=== PATIENT | female | born 1970 | race Caucasian/White ===

== ENCOUNTER 2018-01-01 21:55 | Inpatient (IN) ==
--- NOTE | 2018-01-02 01:08 | ED ---
HPI General Chief complaint: Skin/Abscess/Foreign Body Stated complaint: rt leg pain Time Seen by Provider: 01/02/18 00:45 Source: patient Limitations: no limitations History of Present Illness HPI narrative: The patient is a 47 year old female who presents to the [facility] emergency department with a history of increasing pain to the right lower extremity. The patient reports that she has a chronic wound from being cut by a vine along the lateral aspect of the right leg. The patient reports that this has been managed by wound care in [place] up until a month ago when she moved to the area. She reports that she was last treated with antibiotic for this approximately a month ago. She reports that she is currently homeless. She reports that there has been a yellow drainage from the wound and the area of ulceration has increased in size recently. She reports having chills, however she is unsure whether she has had any fevers. She reports having nausea intermittently over the last 2 weeks. She reports having diarrhea since yesterday. She reports that she drinks a 12 pack of beer daily. On review of systems she denies having any worsening cough or congestion, neck pain, chest pain, shortness of breath, abdominal pain, urinary symptoms, or neurologic symptoms. Related Data Home Medications Medication Instructions Recorded Confirmed No Known Home Medications 01/02/18 01/02/18 Allergies Allergy/AdvReac Type Severity Reaction Status Date / Time aspirin Allergy Mild Rash Verified 01/01/18 22:28 nicotine Allergy Hives Verified 01/01/18 22:28 Review of Systems ROS: all other systems reviewed are negative [facility] Medical History Medical History COPD (chronic obstructive pulmonary disease) (Acute) Liver disease due to alcohol (Acute) Obesity (Acute) Social History Social History Substance History: Active Abuse Second Hand Smoke Exposure: Yes Smoking Status: Current every day smoker Tobacco Type: Cigarettes How Often Do You Have a Drink Containing Alcohol: 4 or more times a week Recent Travel in [facility] within the Last 8 Weeks: No Recent Out of Country Travel within the Last 8 Weeks: No Exam Const General: cooperative, no acute distress, well developed and disheveled Nutritional Appearance: well nourished Orientation: alert, awake and oriented x3 HENMT Head: normocephalic and atraumatic Nose: no nasal discharge and no epistaxis Mouth: moist mucous membranes Throat: posterior oropharynx normal and uvula midline Eyes Sclera: normal sclerae Pupils: PERRL Neck Neck: no meningeal signs, trachea midline and no JVD Resp Effort & Inspection: no use of accessory muscles Auscultation: clear to auscultation bilaterally Cardio Rate: regular rate Rhythm: regular rhythm Heart Sounds: no gallops, no murmurs and no rubs GI Inspection: non-distended Palpation: soft, no hepatosplenomegaly and nontender Auscultation: normal bowel sounds Back/Spine/Pelvis Back: no CVA tenderness Cervical Spine: No cervical spinal tenderness Thoracic/Lumbar Spine: No thoracic spinal tenderness and No lumbar spinal tenderness Skin General: dry skin (warm) Wounds: wounds noted (Right lower extremity lateral aspect, an area of ulceration with yellow drainage that is approximately 3 x 5 cm with an area of redness surrounding it and total that is approximately 6 x 7 cm.) Neuro General: alert, awake and oriented x3 Cranial Nerves: other (Grossly nonfocal.) Speech: speech normal Motor: no movement abnormalities noted Extrem General: normal to inspection, no clubbing, no cyanosis and edema (Trace to 1+ pitting edema bilateral lower extremities. No calf tenderness on palpation.) Laterality: bilaterally Psych Mood: congruent mood Affect: normal affect Judgment: fair Course Consultations Consultation #1: The patient's case including history, pertinent physical examination findings, and laboratory studies were discussed with Dr. Wilson. It was agreed that the patient would be admitted to the hospitalist service. Initial Documented Vital Signs Temperature 98 F 01/01/18 22:21 Pulse Rate 86 01/01/18 22:21 Respiratory Rate 16 01/01/18 22:21 Blood Pressure 126/74 01/01/18 22:21 Pulse Oximetry 96 01/01/18 22:21 Last Documented Vital Signs Temperature 98 F 01/01/18 22:21 Pulse Rate 88 01/02/18 02:29 Respiratory Rate 20 01/02/18 02:29 Blood Pressure 125/76 01/02/18 02:29 Pulse Oximetry 98 01/02/18 02:29 Medical Decision Making MDM Narrative Medical decision making narrative: During the course of the patient's emergency department visit, the patient's history, examination, and differential diagnosis were reviewed with the patient. The patient was placed on a alarm security or surveillance monitor with oximetry and frequent blood pressure monitoring. The patient had IV access obtained and blood work sent for analysis. Diagnostic evaluation was started regarding the patient's increased right leg pain with chronic wound that appears to be infected. The patient was initially provided him with saline IV fluids, Zosyn and vancomycin for broad-spectrum antibiotic coverage after wound culture and blood cultures were drawn. An x-ray of the right tib-fib was ordered. 100, diagnostic studies are remarkable for a white count of 3.9, hemoglobin 10.6 , platelets lymphocytes 44.6, monocytes 11, chemistry is remarkable for a chloride of 110, GFR 76, calcium 8.2, AST 82, alk phos 138, ALT within normal limits, lactic acid 0.8. Tib-fib x-ray reveals no acute abnormality, soft tissue ulceration remains present with subcu edema. Chest x-ray showed no acute abnormality. The patient's sedimentation rate is elevated at 62. The patient's CRP is less than 0.29. The patient's results were discussed with the patient, including the plan of care. I explained that further testing and/ or monitoring is indicated based on the patient's history, examination, and/ or laboratory findings. Therefore, I recommended admission for additional evaluation. The patient expressed understanding and was agreeable with this plan. The patient was admitted to the hospital in stable condition and sent to a bed under the care of the [facility] service. The patient's Medical Screen Exam Complete: Yes Emergency Medical Condition: Yes Differential Diagnosis Differential Diagnosis: Osteomyelitis, versus infected chronic wound, versus cellulitis, versus deep abscess, versus sepsis Medical Records Medical records reviewed: Yes I reviewed the patient's medical records. Lab Data Lab results reviewed: Yes I reviewed the patient's lab results. Result diagrams: 01/02/18 02:03 01/02/18 02:03 Lab Results 01/02/18 01/02/18 01/02/18 Range/Units 02:03 02:03 02:03 WBC 3.9 L (4.0-11.0) th/mm3 RBC 3.48 L (4.00-5.30) mil/mm3 Hgb 10.6 L (11.6-15.3) gm/dL Hct 33.1 L (35.0-46.0) % MCV 95.1 (80.0-100.0) fL MCH 30.4 (27.0-34.0) pg MCHC 31.9 L (32.0-36.0) % RDW 19.1 H (11.6-17.2) % Plt Count 100 L (150-450) th/mm3 MPV 8.3 (7.0-11.0) fL Neut % (Auto) 40.7 (16.0-70.0) % Lymph % (Auto) 44.6 H (9.0-44.0) % Terrell % (Auto) 11.0 H (0.0-8.0) % Eos % (Auto) 2.9 (0.0-4.0) % Baso % (Auto) 0.8 (0.0-2.0) % Neut # (Auto) 1.6 L (1.8-7.7) th/mm3 Lymph # (Auto) 1.8 (1.0-4.8) th/mm3 Terrell # (Auto) 0.4 (0.0-0.9) th/mm3 Eos # (Auto) 0.1 (0.0-0.4) th/mm3 Baso # (Auto) 0.0 (0.0-0.2) th/mm3 WBC Differential . Differential Comment Auto diff final ESR 62 H (0-20) mm/hr Sodium (136-145) meq/L Potassium (3.5-5.1) meq/L Chloride (98-107) meq/L Carbon Dioxide (21.0-32.0) meq/L Anion Gap (5-15) meq/L BUN (7-18) mg/dL Creatinine (0.50-1.00) mg/dL Estimated GFR (>89) mL/min Random Glucose (74-106) mg/dL Lactic Acid (0.4-2.0) mmol/L Calcium (8.5-10.1) mg/dL Total Bilirubin (0.2-1.0) mg/dL AST (15-37) U/L ALT (10-53) U/L Alkaline Phosphatase (45-117) U/L C-Reactive Protein Less than 0.29 (0.00-0.30) mg/dL Total Protein (6.4-8.2) g/dL Albumin (3.4-5.0) g/dL Lipase 929 H (73-393) U/L 01/02/18 01/02/18 Range/Units 02:03 02:03 WBC (4.0-11.0) th/mm3 RBC (4.00-5.30) mil/mm3 Hgb (11.6-15.3) gm/dL Hct (35.0-46.0) % MCV (80.0-100.0) fL MCH (27.0-34.0) pg MCHC (32.0-36.0) % RDW (11.6-17.2) % Plt Count (150-450) th/mm3 MPV (7.0-11.0) fL Neut % (Auto) (16.0-70.0) % Lymph % (Auto) (9.0-44.0) % Terrell % (Auto) (0.0-8.0) % Eos % (Auto) (0.0-4.0) % Baso % (Auto) (0.0-2.0) % Neut # (Auto) (1.8-7.7) th/mm3 Lymph # (Auto) (1.0-4.8) th/mm3 Terrell # (Auto) (0.0-0.9) th/mm3 Eos # (Auto) (0.0-0.4) th/mm3 Baso # (Auto) (0.0-0.2) th/mm3 WBC Differential Differential Comment ESR (0-20) mm/hr Sodium 144 (136-145) meq/L Potassium 4.0 (3.5-5.1) meq/L Chloride 110 H (98-107) meq/L Carbon Dioxide 29.0 (21.0-32.0) meq/L Anion Gap 5 (5-15) meq/L BUN 8 (7-18) mg/dL Creatinine 0.81 (0.50-1.00) mg/dL Estimated GFR 76 L (>89) mL/min Random Glucose 102 (74-106) mg/dL Lactic Acid 0.8 (0.4-2.0) mmol/L Calcium 8.2 L (8.5-10.1) mg/dL Total Bilirubin 0.5 (0.2-1.0) mg/dL AST 82 H (15-37) U/L ALT 26 (10-53) U/L Alkaline Phosphatase 138 H (45-117) U/L C-Reactive Protein (0.00-0.30) mg/dL Total Protein 8.5 H (6.4-8.2) g/dL Albumin 3.0 L (3.4-5.0) g/dL Lipase (73-393) U/L Imaging Data Radiologist's impression: Chest X-Ray 01/02/18 01:11 CONCLUSION: No acute findings. Tibia/Fibula X-Ray 01/02/18 01:11 CONCLUSION: No acute bony abnormality. Soft tissue ulceration remains present with subcutaneous edema. Discharge Plan Discharge Disposition Patient Disposition: 30 Still Patient Discharge Details Diagnosis: Infected open wound, Cellulitis Physicians Team ED Provider: Rajni Ochoa Rxs /Orders / Referrals /Forms Prescriptions: No Action No Known Home Medications RF: 0 Discharge Interventions Interventions: Vital Signs Last Done: 01/02/18 02:29 Status ED Status: With Doctor
[2018-01-02] MEDS ORDERED: Vancomycin Inj 1 GM/200 ML PIGGYBACK IV.SIG ONE ×2 (01:12→04:42)
[2018-01-02] MEDS ORDERED: Piperacil/Tazo 3.375 GM Premix 50 ML IV.SIG ONE ×2 (01:12→04:42)
[2018-01-02] MEDS ORDERED: Sod Chloride 0.9% Inj 1,000 ML IV.SIG ONE ×2 (01:12→04:42)
[2018-01-02 02:34] LABS: Baso % (Auto) 0.8 % (0.0-2.0); Eos # (Auto) 0.1 th/mm3 (0.0-0.4); Eos % (Auto) 2.9 % (0.0-4.0); Hematocrit 33.1 % (35.0-46.0); Hemoglobin 10.6 gm/dL (11.6-15.3); Lymph # (Auto) 1.8 th/mm3 (1.0-4.8); Lymph % (Auto) 44.6 % (9.0-44.0); Mean Corpuscular HGB Conc 31.9 % (32.0-36.0); Mean Corpuscular Hemoglobin 30.4 pg (27.0-34.0); Mean Corpuscular Volume 95.1 fL (80.0-100.0); Mean Platelet Volume 8.3 fL (7.0-11.0); Mono # (Auto) 0.4 th/mm3 (0.0-0.9); Neut # (Auto) 1.6 th/mm3 (1.8-7.7); Neut % (Auto) 40.7 % (16.0-70.0); Platelet Count 100 th/mm3 (150-450); Red Blood Count 3.48 mil/mm3 (4.00-5.30); Red Cell Distribution Width 19.1 % (11.6-17.2); White Blood Count 3.9 th/mm3 (4.0-11.0)
[2018-01-02 02:40] LABS: Alanine Aminotransferase 26 U/L (10-53); Anion Gap 5 meq/L (5-15); Aspartate Aminotransferase 82 U/L (15-37); Blood Urea Nitrogen 8 mg/dL (7-18); Calcium 8.2 mg/dL (8.5-10.1); Chloride 110 meq/L (98-107); Glomerular Filtration Rate 76 mL/min (>89); Glucose,Random 102 mg/dL (74-106); Lipase 929 U/L (73-393); Sodium 144 meq/L (136-145)
[2018-01-02 02:43] LABS: Alkaline Phosphatase 138 U/L (45-117); Total Protein 8.5 g/dL (6.4-8.2)
--- NOTE | 2018-01-02 02:57 | XR ---
EXAM DATE: 01/02/2018 2:54 AM EDT AGE/SEX: 47 years / Female INDICATIONS: Nonhealing ulcer on the distal lateral aspect of the right tibia. CLINICAL DATA: This is the patient's initial encounter. Patient reports that signs and symptoms have been present for 3 months and indicates a pain score of 10/10. MEDICAL/SURGICAL HISTORY: . Chronic obstructive pulmonary disease. . . Umbilical hernia repair . Cholecystectomy COMPARISON: [facility] [place], CHEST 1V SINGLE AP, 12/03/2017. . FINDINGS: A single AP view of the chest demonstrates the lungs to be symmetrically aerated without evidence of mass, infiltrate or effusion. The cardiomediastinal contours are unremarkable. Osseous structures a re intact. CONCLUSION: No acute findings. Electronically signed by: Ashkan Ty MD 01/02/2018 2:56 AM EDT
[2018-01-02] MEDS ORDERED: Vancomycin Inj 1,000 MG in Sodium Chlor 0.9% Inj 250 ML IV.SIG ONE ×6 (03:00→07:20)
--- NOTE | 2018-01-02 03:01 | XR ---
EXAM DATE: 01/02/2018 2:58 AM EDT AGE/SEX: 47 years / Female INDICATIONS: Nonhealing ulcer on the distal lateral aspect of the right tibia CLINICAL DATA: This is the patient's initial encounter. Patient reports that signs and symptoms have been present for 3 months and indicates a pain score of 10/10. MEDICAL/SURGICAL HISTORY: . Chronic obstructive pulmonary disease. . . Umbilical hernia repair . Cholecystectomy COMPARISON: [facility] [place], TIBIA FIBULA RIGHT 2V, 12/03/2017. . FINDINGS: Compare December 03. Again seen is an ulceration in the distal leg laterally. No acute underlying bony abnormality. Soft tissue edema present. CONCLUSION: No acute bony abnormality. Soft tissue ulceration remains present with subcutaneous edema. Electronically signed by: Ashkan Ty MD 01/02/2018 3:00 AM EDT
[2018-01-02] MEDS ORDERED: Vancomycin Consult Pharmacy OTHER PRN (04:42)
[2018-01-02] MEDS ORDERED: Acetaminophen 325 MG Tablet PO PRN (04:44)
[2018-01-02] MEDS ORDERED: Bisacodyl 10 MG Supp RECTAL PRN (04:44)
[2018-01-02] MEDS ORDERED: Ketorolac Inj 30 MG/ML (IVP) Vial IV.PUSH ONE (05:47)
[2018-01-02] MEDS: Sod Chloride 0.9% Inj 1,000 ML IV.CONT SCH ×4 (07:47→21:55)
--- NOTE | 2018-01-02 10:01 | P.HP ---
History of Present Illness Primary Care Physician: No Primary Care Physician History of Present Illness: 47-year-old white female being admitted for acutely infected wound and intractable right leg pain. Patient was in her usual state of health until about 1 week ago when the chronic intermittent pain in her right foot and wound began to worsen and became unbearable over the week. Hurt more to bear weight on it, only thing she has tried to do to take away the pain is drink alcohol which she drinks daily anyway.. Patient says she is noticed no significant change in the chronic drainage of the wound which would either drain blood or yellowish fluid. Says it has had followed her for a couple of weeks now. Patient says that most recently she has just been applying gauze to cover it but had been applying med-a-honey up until a few weeks ago. Says she saw a dedicated wound care practice in [place] right across from [facility]. Patient denies having any surgery on this wound. Says this wound has been there for 4 months, first occurred when she had cut herself with some thorny lima in the ol[place]. Patient says she has been home for 4 years. Patient reports having some nausea but no fevers or chills. Patient says that she does have increased lower extremity edema, on exam the right is worse than the left. In the emergency department her blood work is unremarkable. Review of Systems All other systems reviewed negative except as stated in HPI PMFSH - History History Provided By: Patient - Medical History Medical History: Medical History (Last Reviewed 01/02/18 @ 10:02 by Francisco Roberts MD) COPD (chronic obstructive pulmonary disease) Liver disease due to alcohol Obesity - Surgical History Surgical History: Surgical History (Last Updated 01/02/18 @ 10:02 by Francisco Roberts MD) H/O hernia repair - Social History I have reviewed the patient's Social History: Yes - Tobacco History Second Hand Smoke Exposure: Yes Tobacco Use In Past 30 Days: Yes Smoking Status: Current every day smoker Tobacco Type: Cigarettes - Alcohol History How Often Do You Have a Drink Containing Alcohol: 4 or more times a week - Substance Use History Substance History: Active Abuse - Travel History Recent Travel in the [place] Within the Last 8 Weeks: No Recent Travel Out of the Country Within the Last 8 Weeks: No - Immunization History Tetanus Immunization: <5 Years Hx Influenza Vaccine This Season: Yes Medications and Allergies Active Medications: Active Medications Acetaminophen (Tylenol) 650 mg PO Q4H PRN PRN Reason: Temp > 100.4 Al Hydroxide/Mg Hydroxide (Milk Of Magnesia Liq) 30 ml PO Q12H PRN PRN Reason: Mild Constipation Bisacodyl (Dulcolax Supp) 10 mg RECTAL DAILY PRN PRN Reason: SEVERE CONSITIPATION Chlordiazepoxide (Librium) 10 mg PO Q8H [facility] Sodium Chloride (Ns Inj) 1,000 mls @ 125 mls/hr IV.CONT .Q8H [facility] Last Admin: 01/02/18 07:47 Dose: 125 mls/hr Piperacillin/Tazobactam/Dextrose (Zosyn 3.375 Gm Premix) 50 mls @ 100 mls/hr IV.SIG Q6H [facility] Lactulose (Lactulose Liq) 30 ml PO DAILY PRN PRN Reason: SEVERE CONSITIPATION Ondansetron HCl (Zofran Inj) 4 mg IV.PUSH Q6H PRN PRN Reason: NAUSEA OR VOMITING Pharmacy Profile Note (Vancomycin Consult Pharmacy) 1 each OTHER UNSCH PRN PRN Reason: Pharmacy to dose Senna/Docusate Sodium (Heike-Colace) 1 tab PO BID [facility] Sennosides (Senokot) 17.2 mg PO Q12H PRN PRN Reason: Moderate Constipation Allergies Allergy/AdvReac Type Severity Reaction Status Date / Time aspirin Allergy Mild Rash Verified 01/01/18 22:28 nicotine Allergy Hives Verified 01/01/18 22:28 Home Medications Medication Instructions Recorded Confirmed Type No Known Home Medications 01/02/18 01/02/18 History Exam Vital signs: Vital Signs 01/01/18 22:21 01/01/18 22:29 01/02/18 02:29 Temperature 98 F Pulse Rate 86 72 88 Respiratory Rate 16 20 20 Blood Pressure 126/74 116/68 125/76 Pulse Oximetry 96 98 98 01/02/18 09:00 Temperature Pulse Rate 66 Respiratory Rate 16 Blood Pressure 144/75 H Pulse Oximetry 98 Intake & Output 01/01/18 01/02/18 01/02/18 18:59 06:59 18:59 Intake Total 1050 / 1050 1300 / 1300 Balance 1050 / 1050 1300 / 1300 Weight 122.47 kg Intake: IV 1050 / 1050 1300 / 1300 Zosyn 3.375 GM Premix 50 ML @ 50 / 50 100 mls/hr IV.SIG ONCE ONE Rx#: [id number] NS Inj 1,000 ML @ Wide Open IV. 1000 / 1000 SIG BOLUS ONE Rx#:[id number] Narrative: VS: afebrile GENERAL: Obese female, disheveled appearing, no acute distress SKIN: Has a gaping wound that is at least golf ball size in diameter with purulent drainage that has a foul odor and appears to penetrate subcu fat EYES: No scleral icterus. No injection or drainage. ENT: No nasal bleeding or discharge. CARDIOVASCULAR: Regular rate and rhythm. no murmurs RESPIRATORY: No accessory muscle use. Clear to auscultation. Breath sounds equal bilaterally. GASTROINTESTINAL: Abdomen soft, non-tender, nondistended. Extremities: No clubbing, cyanosis. Has bilateral lower extremity edema, right is worse than the left. MUSCULOSKELETAL: adequate muscle bulk and tone for age and habitus NEUROLOGICAL: Awake and alert. No obvious cranial nerve deficits. No facial droop nor slurred speech noted. PSYCHIATRIC: Appropriate mood and affect; insight and judgment normal. Results - Labs CBC & Chem 7: 01/03/18 05:20 01/03/18 05:20 Labs: Laboratory Results - last 24 hr 01/02/18 01/02/18 01/02/18 02:03 02:03 02:03 WBC 3.9 L RBC 3.48 L Hgb 10.6 L Hct 33.1 L MCV 95.1 MCH 30.4 MCHC 31.9 L RDW 19.1 H Plt Count 100 L MPV 8.3 Neut % (Auto) 40.7 Lymph % (Auto) 44.6 H Pettis % (Auto) 11.0 H Eos % (Auto) 2.9 Baso % (Auto) 0.8 Neut # (Auto) 1.6 L Lymph # (Auto) 1.8 Pettis # (Auto) 0.4 Eos # (Auto) 0.1 Baso # (Auto) 0.0 WBC Differential . Differential Comment Auto diff final ESR 62 H Sodium Potassium Chloride Carbon Dioxide Anion Gap BUN Creatinine Estimated GFR Random Glucose Lactic Acid Calcium Total Bilirubin AST ALT Alkaline Phosphatase C-Reactive Protein Less than 0.29 Total Protein Albumin Lipase 929 H 01/02/18 01/02/18 02:03 02:03 WBC RBC Hgb Hct MCV MCH MCHC RDW Plt Count MPV Neut % (Auto) Lymph % (Auto) Pettis % (Auto) Eos % (Auto) Baso % (Auto) Neut # (Auto) Lymph # (Auto) Pettis # (Auto) Eos # (Auto) Baso # (Auto) WBC Differential Differential Comment ESR Sodium 144 Potassium 4.0 Chloride 110 H Carbon Dioxide 29.0 Anion Gap 5 BUN 8 Creatinine 0.81 Estimated GFR 76 L Random Glucose 102 Lactic Acid 0.8 Calcium 8.2 L Total Bilirubin 0.5 AST 82 H ALT 26 Alkaline Phosphatase 138 H C-Reactive Protein Total Protein 8.5 H Albumin 3.0 L Lipase - Imaging Impressions Chest X-Ray 01/02/18 01:11 CONCLUSION: No acute findings. Tibia/Fibula X-Ray 01/02/18 01:11 CONCLUSION: No acute bony abnormality. Soft tissue ulceration remains present with subcutaneous edema. Caprini VTE Risk Assessment Caprini VTE Risk Assessment: Moderate/High Risk (score >= 2) VTE Mechanical Exception: LE injury/wound Caprini Risk Assessment Model: Point Value = 1 Point Value = 2 Point Value = 3 Point Value = 5 Age 41-60 Minor surgery BMI > 25 kg/m2 Swollen legs Varicose veins or History of unexplained or recurrent spontaneous Oral contraceptives or hormone replacement Sepsis (< 1 month) Serious lung disease, including pneumonia (< 1 month) Abnormal pulmonary function Acute myocardial infarction Congestive heart failure (< 1 month) History of inflammatory bowel disease Medical patient at bed rest Age 61-74 Arthroscopic surgery Major open surgery (> 45 min) Laparoscopic surgery (> 45 min) Malignancy Confined to bed (> 72 hours) Immobilizing plaster cast Central venous access Age >= 75 History of VTE Family history of VTE Factor V Leiden Prothrombin [id number] Lupus anticoagulant Anticardiolipin antibodies Elevated serum homocysteine Heparin-induced thrombocytopenia Other congenital or acquired thrombophilia Stroke (< 1 month) Elective arthroplasty Hip, pelvis, or leg fracture Acute spinal cord injury (< 1 month) Prophylaxis Regimen: Total Risk Factor Score Risk Level Prophylaxis Regimen 0-1 Low Early ambulation 2 Moderate Order ONE of the following: *Sequential Compression Device (SCD) *Heparin 5000 units SQ BID 3-4 Higher Order ONE of the following medications: *Heparin 5000 units SQ TID *Enoxaparin/Lovenox 40 mg SQ daily (WT < 150 kg, CrCl > 30 mL/min) *Enoxaparin/Lovenox 30 mg SQ daily (WT < 150 kg, CrCl > 10-29 mL/min) *Enoxaparin/Lovenox 30 mg SQ BID (WT < 150 kg, CrCl > 30 mL/min) AND/OR *Sequential Compression Device (SCD) 5 or more Highest Order ONE of the following medications: *Heparin 5000 units SQ TID (Preferred with Epidurals) *Enoxaparin/Lovenox 40 mg SQ daily (WT < 150 kg, CrCl > 30 mL/min) *Enoxaparin/Lovenox 30 mg SQ daily (WT < 150 kg, CrCl > 10-29 mL/min) *Enoxaparin/Lovenox 30 mg SQ BID (WT < 150 kg, CrCl > 30 mL/min) AND *Sequential Compression Device (SCD) Assessment and Plan - Plan 47-year-old white female admitted for acutely infected chronic wound with intractable leg pain Intractable leg pain Suspect acutely infected chronic wound also need to rule out DVT with ultrasound venous Doppler -consulting wound care physician, wound care nurse, and general surgeon. With the obvious missing skin I would imagine this patient's wound will need specialist intervention - f/u wound culture and G stain, continue vanc and zosyn Lower extremity edema Most likely from dependent positions, will obtain echo to rule out heart failure as well as doppler on right leg to r/o DVT, hold off on lasix, keep elevated Alcohol abuse -We will schedule Librium every 8 hours, wean over time COPD Monitor respiratory status, stable at this time We will consider chemical DVT prophylaxis once patient is surgically clear to do so, avoid SCDs given lower extremity conditions
--- NOTE | 2018-01-02 10:35 | US ---
EXAM DATE: 01/02/2018 10:30 AM EDT AGE/SEX: 47 years / Female INDICATIONS: Right leg pain and swelling. Open wound right lower lateral leg. CLINICAL DATA: This is the patient's initial encounter. Patient reports that signs and symptoms have been present for 4 - 6 months and indicates a pain score of 8/10. MEDICAL/SURGICAL HISTORY: . COPD. Liver disease. Obesity. None. COMPARISON: [facility] [place], [place] LEG SOFT TISSUE RIGHT, 01/02/2018. . TECHNIQUE: Venous ultrasound of both lower extremities was performed from the inguinal ligament to t he proximal calf. Real-time, color Doppler and spectral tracing, compression and augmentation techni ques were used. FINDINGS: Normal compression of the deep venous system from the inguinal region to the proximal calf . No echogenic clot is seen. Normal response of the venous system to augmentation and respiration. 3 cm right inguinal lymph node 5.6 cm popliteal cyst. CONCLUSION: 1. Negative for deep venous thrombosis 2. 5.6 cm popliteal cyst Electronically signed by: Wyatt Castañeda MD 01/02/2018 10:33 AM EDT
[2018-01-02] MEDS: Senna/Docusate Sodium 8.6/50 MG Tablet PO SCH ×2 (10:43→21:54)
[2018-01-02] MEDS ORDERED: Piperacil/Tazo 3.375 GM Premix 50 ML IV.SIG SCH (11:00)
[2018-01-02] MEDS ORDERED: Naloxone Inj 0.4 MG/ML Vial IV.PUSH PRN (12:46)
[2018-01-02] MEDS ORDERED: Vancomycin Inj 1,750 MG in Sodium Chlor 0.9% Inj 500 ML IV.SIG SCH (14:00)
[2018-01-02] MEDS: Piperacil/Tazo 3.375 GM Premix 50 ML IV.SIG SCH ×2 (15:49→21:54)
--- NOTE | 2018-01-02 16:01 | US ---
EXAM DATE: 01/02/2018 10:24 AM EDT AGE/SEX: 47 years / Female INDICATIONS: Wound lateral right lower leg with yellow drainage. CLINICAL DATA: This is the patient's initial encounter. Patient reports that signs and symptoms have been present for 4 - 6 months and indicates a pain score of 8/10. MEDICAL/SURGICAL HISTORY: . COPD. Liver disease. Obesity. None. COMPARISON: No prior exams available for comparison. FINDINGS: There is a large open wound present. There is a very small amount of fluid layering along the fascia and subcutaneous tissues without defined abscess. CONCLUSION: 1. Fluid as above. Electronically signed by: Wyatt Castañeda MD 01/02/2018 3:59 PM EDT
[2018-01-02] MEDS ORDERED: Lidocaine PF 1% Inj 5 ML Syringe INFILTRATN ONE (17:15)
[2018-01-02] MEDS ORDERED: Succinylcholine Inj 100 MG/5 ML Syringe IV.PUSH ONE (17:15)
[2018-01-02] MEDS ORDERED: fentaNYL Citrate Inj 250 MCG/5 ML Ampul ONE (18:39)
[2018-01-02] MEDS ORDERED: Neomycin/Polymyxin G.U. Irrigant 1 ML Ampul ONE ×2 (19:02→19:18)
--- NOTE | 2018-01-02 19:13 | P.OP ---
- Preoperative Diagnosis (1) Infected open wound - Postoperative Diagnosis (1) Infected open wound Date of procedure: 01/02/18 Procedure: I and D of RLE abscess with vac Anesthesia: GETA Surgeon: Wilfrido Miller MD Estimated blood loss (mL): 5 Pathology: other (purulent material sent for cx) Operation and Findings: abscess
[2018-01-02] MEDS ORDERED: MethylPREDNISolone Sod Succinate Inj 125 MG/2 ML Vial ONE (19:37)
[2018-01-02] MEDS ORDERED: *Meperidine Inj 25 MG/ML Vial PERIprocedural Use ONLY ONE (20:05)
--- NOTE | 2018-01-02 21:28 | MB ---
cc: Wilfrido Miller MD,Rajni Hawk MD DATE: 01/02/2018 CHIEF COMPLAINT: Right lower extremity abscess infection, chronic nonhealing wound. STRATEGIC PLANNING MANAGER: Rajni Ochoa MD HISTORY OF PRESENT ILLNESS: The patient is a 47-year-old female who presents with an acute onset of right lower extremity pain. The patient states that approximately 1 week ago, her foot began to swell significantly and her pain became unbearable. She tried to walk on it, but had difficulty. She has no fevers or chills. She states the pain is a 10/10 with some improvement with IV morphine to 9/10. She states chronic nonhealing wound drainage. She states that this has been going on for 4 months. It originally started after being cut in the oliva by a thorny vine and has progressively gotten worse and has not healed. She has undergone several attempts of wound care without success. The patient is noted to be homeless and does drink a 12-pack per day. She denies any shortness of breath, diarrhea or constipation. PAST MEDICAL HISTORY: COPD, liver disease, obesity, chronic right lower extremity wound. PAST SURGICAL HISTORY: History of hernia repair. SOCIAL HISTORY: Positive smoking, positive ETOH. Denies IVDA. ALLERGIES: ASPIRIN, CODEINE. MEDICATIONS: See EMR. FAMILY HISTORY: Denies diabetes or hypertension. REVIEW OF SYSTEMS: GENERAL: Denies eye pain or ear pain. NECK: Denies swelling or pain. LUNGS: Denies cough or wheeze. HEART: Denies palpitations or chest pain. ABDOMEN: Denies nausea or vomiting. GENITOURINARY: Denies dysuria or hematuria. ENDOCRINE: Denies polyuria or polydipsia. INTEGUMENT: Denies any masses. Complains of lesion on right lower extremity. EXTREMITIES: Complains of swelling and edema. NEUROLOGIC: Denies any numbness or tingling. PHYSICAL EXAMINATION: GENERAL: The patient in no acute distress. VITAL SIGNS: Temperature 98, pulse 86, respirations 16, blood pressure 126/74, saturation 96%. HEENT: Pupils equal, round and reactive. NECK: Supple. Trachea midline. LUNGS: Clear to auscultation with bilateral expansion. HEART: S1, S2. Regular. ABDOMEN: Soft, nontender. Well-healed surgical scars. EXTREMITIES: Warm and well perfused, 2+ pulses in all extremities. Right lower extremity lateral aspect, a 4 x 4 cm necrotic area with ulceration and purulent drainage. Extremely tender to palpation. Cellulitic areas as well. NEUROLOGIC: GCS 15, 5/5 motor in all extremities. PSYCHIATRIC: Appropriate mood, appropriate insight. LABORATORY AND DIAGNOSTIC DATA: WBC 3.9, hemoglobin 10.6, hematocrit 33.1, platelets 100. Sodium 144, potassium 4, chloride 110, BUN 8, creatinine 0.8, calcium 8.2, AST 82, ALT 26, alkaline phosphatase 138, lipase 929, albumin 3. An ultrasound reviewed by myself is showing a large open wound present with a small amount of fluid in the underlying fascia and subcutaneous tissue. ASSESSMENT: The patient is a 47-year-old female who presents with acute onset right lower extremity wound, acute on chronic exacerbation. PLAN: After a full clinical, radiologic and laboratory workup, the patient with the above-noted issues. The patient was noted to have edema with cellulitis and purulent drainage from a chronically nonhealing wound. At this point, we will take the patient to the OR for operative intervention including incision and debridement and drainage with VAC placement. Discussed with the patient in detail. She states understanding and agrees. The patient needs IV antibiotics, n.p.o., pain control, IV fluids. Thank you for the consultation. MD ED Zapien/rabia , 08:21 PM , 08:32 PM
--- NOTE | 2018-01-02 22:13 | MP ---
cc: Wilfrido Miller MD DATE OF OPERATION: 01/02/2018 PREOPERATIVE DIAGNOSIS: Right lower extremity abscess, chronic nonhealing wound. POSTOPERATIVE DIAGNOSIS: Right lower extremity abscess, chronic nonhealing wound. PROCEDURE PERFORMED: Incision and drainage with excisional debridement of skin and soft tissue of abscess and chronic leg ulceration with VAC placement 4 x 4 x 0.5 cm deep. SURGEON: Wilfrido Miller MD TECHNICAL PROJECT LEAD: See OR sheet. ANESTHESIA: GETA. IV FLUIDS: See sheet. ESTIMATED BLOOD LOSS: 5 mL. DRAINS: Hemovac placement. COMPLICATIONS: None. WOUND CLASSIFICATION: Dirty, contaminated. SPECIMENS: Cultures of the wound bed, taken for culture. Biopsy of skin sidewall was sent for pathology. INDICATION: The patient presented with acute onset of right lower extremity pain. The patient was noted to have been cut by a vine several months ago and developed pain with this. She developed a chronic wound as a result cut from branch and intensified, so decision was made for evaluation and debridement. PROCEDURE: The patient was taken to the operating suite and placed in the supine position. She was prepped and draped in usual sterile fashion after endotracheal anesthesia. A timeout was done. Attention was directed to the right lower extremity where the ulceration bed was noted. There was purulent drainage coming from the wound bed. Swab cultures were taken of this purulence and sent for culture specimen and Gram stain. Further debridement was done of the necrotic tissue in order to get to clean, healthy tissue. An aspiration 20-gauge needle was used in order to see if there is any deep seated abscess. There did not appear to be any purulent infected fluid, just serous edematous fluid. This was also sent for cultures to verify. Once adequate hemostasis was obtained, the wound bed again noted to be 4 cm x 4 cm x 0.5 cm deep. A VAC sponge was cut to size and placed in the wound bed. After irrigation multiple aliquots of normal saline. The plastic drape was placed. The retractor was placed to suction without evidence of leaking. The patient tolerated the procedure well. There were no intraoperative complications. All lap and instrument counts were correct at the end of the procedure. The patient was extubated and taken to the PACU. MD ED Zapien/dinah/ , 07:52 PM , 08:03 PM MTDKenn
[2018-01-03] MEDS: Piperacil/Tazo 3.375 GM Premix 50 ML IV.SIG SCH ×4 (02:50→20:21)
[2018-01-03] MEDS: Vancomycin Inj 1,750 MG in Sodium Chlor 0.9% Inj 500 ML IV.SIG SCH ×2 (04:31→15:22)
[2018-01-03 06:18] LABS: Baso % (Auto) 0.2 % (0.0-2.0); Eos % (Auto) 0.1 % (0.0-4.0); Hematocrit 30.3 % (35.0-46.0); Hemoglobin 9.5 gm/dL (11.6-15.3); Lymph # (Auto) 0.2 th/mm3 (1.0-4.8); Lymph % (Auto) 10.3 % (9.0-44.0); Mean Corpuscular HGB Conc 31.4 % (32.0-36.0); Mean Corpuscular Hemoglobin 30.2 pg (27.0-34.0); Mean Corpuscular Volume 96.3 fL (80.0-100.0); Mean Platelet Volume 8.8 fL (7.0-11.0); Mono % (Auto) 1.6 % (0.0-8.0); Neut % (Auto) 87.8 % (16.0-70.0); Platelet Count 66 th/mm3 (150-450); Red Blood Count 3.15 mil/mm3 (4.00-5.30); Red Cell Distribution Width 18.4 % (11.6-17.2); White Blood Count 2.3 th/mm3 (4.0-11.0)
[2018-01-03] MEDS: Sod Chloride 0.9% Inj 1,000 ML IV.CONT SCH ×3 (06:28→22:45)
[2018-01-03 06:51] LABS: Calcium 7.8 mg/dL (8.5-10.1); Carbon Dioxide 24.1 meq/L (21.0-32.0); Potassium 4.4 meq/L (3.5-5.1)
[2018-01-03 07:02] LABS: Platelet Morphology Normal (Normal)
[2018-01-03] MEDS: Senna/Docusate Sodium 8.6/50 MG Tablet PO SCH ×2 (08:42→20:22)
--- NOTE | 2018-01-03 09:56 | P.PN ---
Subjective Interval history: Follow-up right lower extremity abscess status post I&D. Patient has no new complaints. Tolerating wound VAC. Discussed with neurosurgery follow-up and biopsy Physical Exam Vital signs: Vital Signs 01/02/18 12:52 01/02/18 14:45 01/02/18 18:40 Temperature 98.0 F Pulse Rate 60 60 65 Respiratory Rate 18 16 14 Blood Pressure 144/82 H 158/80 H 177/73 H Pulse Oximetry 96 99 98 01/02/18 20:00 01/02/18 20:15 01/02/18 20:40 Temperature 98.0 F 98 F 98.0 F Pulse Rate 91 H 76 66 Respiratory Rate 14 14 14 Blood Pressure 139/63 151/68 H 153/69 H Pulse Oximetry 98 97 100 01/02/18 21:00 01/03/18 00:00 01/03/18 04:00 Temperature 97.6 F 97.4 F L 98.1 F Pulse Rate 73 72 63 Respiratory Rate 20 20 20 Blood Pressure 181/73 H 168/76 H 142/69 H Pulse Oximetry 93 L 94 L 94 L 01/03/18 08:04 Temperature 97.8 F Pulse Rate 59 L Respiratory Rate 16 Blood Pressure 128/60 Pulse Oximetry 96 Intake & Output 01/02/18 01/03/18 01/03/18 18:59 06:59 18:59 Intake Total 3350 / 3350 2597.5 / 2597.5 Output Total 25 / 25 Balance 3350 / 3350 2572.5 / 2572.5 Weight 132.3 kg 136.8 kg Intake: IV 3350 / 3350 1617.5 / 1617.5 NS Inj 1,000 ML @ 125 mls/hr IV 1999 / 2000 1000 / 1000 .CONT .Q8H CHARLIE Rx#:[id number] Zosyn 3.375 GM Premix 50 ML @ 50 / 50 100 / 100 100 mls/hr IV.SIG Q6H [facility]LIE Rx#: [id number] Vancomycin Inj 1,750 MG In NS 517.5 / 517.5 Inj 500 ML @ 250 mls/hr IV.SIG Q12H [facility]LIE Rx#:[id number] Oral 480 / 480 Anesthesia Amount 500 / 500 Output: Wound Vac Amount 25 / 25 Right Lower Calf 25 / 25 Other: Mode Setting Left Lower Calf Continuous Right Lower Calf Continuous # Voids 3 Weight On Admission 132.3 kg Narrative: GENERAL: Obese female, disheveled appearing, no acute distress SKIN: Sunburn. Wd vac right leg CARDIOVASCULAR: Regular rhythm. Bradycardia no murmurs RESPIRATORY: No accessory muscle use. Clear to auscultation. Breath sounds equal bilaterally. GASTROINTESTINAL: Abdomen soft, non-tender, nondistended. Extremities: No clubbing, cyanosis. Has bilateral lower extremity edema, right is worse than the left. MUSCULOSKELETAL: adequate muscle bulk and tone for age and habitus NEUROLOGICAL: Awake and alert. No obvious cranial nerve deficits. No facial droop nor slurred speech noted. PSYCHIATRIC: Appropriate mood and affect; insight and judgment normal. Results - Labs CBC & Chem 7: 01/03/18 05:20 01/03/18 05:20 Laboratory Results - last 24 hr 01/03/18 01/03/18 05:20 05:20 WBC 2.3 L RBC 3.15 L Hgb 9.5 L Hct 30.3 L MCV 96.3 MCH 30.2 MCHC 31.4 L RDW 18.4 H Plt Count 66 L D MPV 8.8 Prelim Diff (Auto) Slide review pending Neut % (Auto) 87.8 H Lymph % (Auto) 10.3 [place] % (Auto) 1.6 Eos % (Auto) 0.1 Baso % (Auto) 0.2 Neut # (Auto) 2.0 Lymph # (Auto) 0.2 L [place] # (Auto) 0.0 Eos # (Auto) 0.0 Baso # (Auto) 0.0 WBC Differential . Diff Scan Auto diff confirmed Differential Comment . Platelet Estimate Low L Platelet Morphology Normal Sodium 138 Potassium 4.4 Chloride 106 Carbon Dioxide 24.1 Anion Gap 8 BUN 10 Creatinine 0.96 Estimated GFR 63 L Random Glucose 278 H D Calcium 7.8 L Microbiology 01/02/18 22:00 Abscess - Leg Fungal Smear - Final No fungal elements seen 01/02/18 01:45 Wound - Leg Gram Stain - Final - Imaging Impressions ITS Impressions Lower Extremity Ultrasound 01/02/18 00:00 CONCLUSION: 1. Fluid as above. Venous Doppler Study 01/02/18 00:00 CONCLUSION: 1. Negative for deep venous thrombosis 2. 5.6 cm popliteal cyst Chest X-Ray 01/02/18 01:11 CONCLUSION: No acute findings. Tibia/Fibula X-Ray 01/02/18 01:11 CONCLUSION: No acute bony abnormality. Soft tissue ulceration remains present with subcutaneous edema. - Procedures Status post I&D of right lower extremity abscess Assessment and Plan - Plan 47-year-old white female admitted for acutely infected chronic wound with intractable leg pain Right lower extremity abscess with leg pain status post I&D with wound VAC. Wound care, pain management with Lortab and antibiotics with vancomycin and Zosyn follow-up cultures with gram-negative lizzie. Follow-up biopsy -Surgery to consider discontinuation of wound VAC in 1-2 days transition to wet- to-dry Lower extremity edema. Negative for DVT on Doppler. Echocardiogram unremarkable Most likely from dependent positions, keep elevated Alcohol abuse -We will schedule Librium every 8 hours, wean over time. [place] protocol COPD Monitor respiratory status, stable at this time Pancytopenia likely related to alcohol. Monitor Elevated lipase. Denies abdominal pain. Monitor we will consider chemical DVT prophylaxis once patient is surgically clear to do so and when thrombocytopenia improves, avoid SCDs given lower extremity conditions
[2018-01-03] MEDS ORDERED: Haloperidol Inj 5 MG/ML Ampul IV.PUSH PRN (10:00)
[2018-01-03] MEDS ORDERED: LORazepam 1 MG Tablet PO PRN (10:00)
--- NOTE | 2018-01-03 10:55 | P.PNGS ---
Subjective Patient reports: feels better (still with RLE pain, stable, no fevers ) Physical Exam Vital signs: Vital Signs 01/02/18 12:52 01/02/18 14:45 01/02/18 18:40 Temperature 98.0 F Pulse Rate 60 60 65 Respiratory Rate 18 16 14 Blood Pressure 144/82 H 158/80 H 177/73 H Pulse Oximetry 96 99 98 01/02/18 20:00 01/02/18 20:15 01/02/18 20:40 Temperature 98.0 F 98 F 98.0 F Pulse Rate 91 H 76 66 Respiratory Rate 14 14 14 Blood Pressure 139/63 151/68 H 153/69 H Pulse Oximetry 98 97 100 01/02/18 21:00 01/03/18 00:00 01/03/18 04:00 Temperature 97.6 F 97.4 F L 98.1 F Pulse Rate 73 72 63 Respiratory Rate 20 20 20 Blood Pressure 181/73 H 168/76 H 142/69 H Pulse Oximetry 93 L 94 L 94 L 01/03/18 08:04 Temperature 97.8 F Pulse Rate 59 L Respiratory Rate 16 Blood Pressure 128/60 Pulse Oximetry 96 Intake & Output 01/02/18 01/03/18 01/03/18 18:59 06:59 18:59 Intake Total 3350 / 3350 2597.5 / 2597.5 Output Total Balance 3350 / 3350 2572.5 / 2572.5 Weight 132.3 kg 136.8 kg Intake: IV 3350 / 3350 1617.5 / 1617.5 NS Inj 1,000 ML @ 125 mls/hr IV 1999 / 1999 1000 / 1000 .CONT .Q8H [facility] Rx#:[id number] Zosyn 3.375 GM Premix 50 ML @ 50 / 50 100 / 100 100 mls/hr IV.SIG Q6H [facility]LIE Rx#: [id number] Vancomycin Inj 1,750 MG In NS 517.5 / 517.5 Inj 500 ML @ 250 mls/hr IV.SIG Q12H [facility] Rx#:[id number] Oral 480 / 480 Anesthesia Amount 500 / 500 Output: Wound Vac Amount 25 / 25 Right Lower Calf 25 / 25 Other: Mode Setting Left Lower Calf Continuous Right Lower Calf Continuous # Voids 3 Weight On Admission 132.3 kg - Routine Extremities Exam Present: edema (vac in place RLE, good sxn, no leak) Assessment and Plan - Plan POD 1 I and d with vac plan reg diet elevation of leg while in bed, ambulate ok for dvt ppx pain control await bx result will remove vac 24-48 hours and transition to wet to dry
--- NOTE | 2018-01-03 12:37 | ECHRPT ---
Indication: heart failure CONCLUSIONS Normal left ventricular size. Wall thickness is normal. The left ventricular systolic function is normal with an estimated ejection fraction of 55%. No defi nite regional wall motion abnormalities are present. No valvular abnormalities. BP: / HR: Rhythm: Technical Quality: FINDINGS LEFT VENTRICLE Normal left ventricular size. Wall thickness is normal. The left ventricular systolic function is normal with an estimated ejection fraction of 55%. No defi nite regional wall motion abnormalities are present. RIGHT VENTRICLE Normal right ventricular size and systolic function. LEFT ATRIUM The left atrial size is normal. RIGHT ATRIUM The right atrial size is normal. ATRIAL SEPTUM Normal atrial septal thickness without atrial level shunting by limited color doppler interrogation. AORTA The aortic root and proximal ascending aorta are normal in size on limited imaging. MITRAL VALVE Structurally normal mitral valve. No mitral valve stenosis or regurgitation. AORTIC VALVE Trileaflet aortic valve. No aortic valve stenosis or regurgitation. TRICUSPID VALVE Structurally normal tricuspid valve. No tricuspid valve stenosis or regurgitation. PULMONARY VALVE The pulmonary valve is not well visualized. VESSELS The inferior vena cava is normal in size. PERICARDIUM No pericardial effusion. Gregg Longoria MD (Electronically Signed) Final Date:03 January 2018 12:36
--- NOTE | 2018-01-03 13:23 | P.PNWCN ---
Wound Care Nurse Consult Description: Wound consult ordered by for wound management Recommendation: Please refer to current order. Additional information: Patient not seen by wound care team.Patient is currently under the skilled care of . Wound/Pressure Injury - Patient Status Premedicated for Pain Prior to Dressing Change: No - Wound Left Lower Calf Wound Assessment: Ongoing Is This a Chronic Wound: Yes Requested from Provider a Wound Care Consult: No (PATIENT CURRENTLY UNDER CARE OF ) Length: 4 Width: 3 Wound Vac - Wound Vac Left Lower Calf Pressure Setting (mmHg): 125 Mode Setting: Continuous Drainage Description: Serous Foam type: Black Right Lower Calf Mode Setting: Continuous Incision - Patient Status Premedicated for Pain Prior to Dressing Change: No - Incision Right Ankle Incision Assessment: Admission Incision Type: Incision Incision Description: Open Drainage Description: Serous Incision Packing Type: Woundvac Sponge Primary Dressing: Negative Pressure Wound Dressing Cover Dressing: Elastic Bandage, Transparent Right Calf Incision Assessment: Ongoing Incision Type: Incision Incision Dressing Status: Dry & Intact
[2018-01-04] MEDS: Piperacil/Tazo 3.375 GM Premix 50 ML IV.SIG SCH ×4 (03:12→20:26)
[2018-01-04] MEDS ORDERED: Pharmacy Ordered Lab Info OTHER ONE (03:45)
[2018-01-04 04:47] LABS: Baso % (Auto) 0.6 % (0.0-2.0); Eos % (Auto) 0.4 % (0.0-4.0); Hematocrit 29.8 % (35.0-46.0); Hemoglobin 9.4 gm/dL (11.6-15.3); Lymph # (Auto) 0.7 th/mm3 (1.0-4.8); Lymph % (Auto) 17.2 % (9.0-44.0); Mean Corpuscular HGB Conc 31.6 % (32.0-36.0); Mean Corpuscular Hemoglobin 30.7 pg (27.0-34.0); Mean Corpuscular Volume 97.2 fL (80.0-100.0); Mean Platelet Volume 8.8 fL (7.0-11.0); Mono # (Auto) 0.3 th/mm3 (0.0-0.9); Neut # (Auto) 2.9 th/mm3 (1.8-7.7); Neut % (Auto) 73.8 % (16.0-70.0); Platelet Count 71 th/mm3 (150-450); Red Blood Count 3.07 mil/mm3 (4.00-5.30); Red Cell Distribution Width 18.7 % (11.6-17.2)
[2018-01-04] MEDS: Sod Chloride 0.9% Inj 1,000 ML IV.CONT SCH ×2 (05:10→14:20)
[2018-01-04] MEDS: Vancomycin Inj 1,750 MG in Sodium Chlor 0.9% Inj 500 ML IV.SIG SCH ×2 (05:10→15:27)
[2018-01-04 05:20] LABS: Albumin 2.5 g/dL (3.4-5.0); Anion Gap 8 meq/L (5-15); Aspartate Aminotransferase 36 U/L (15-37); Blood Urea Nitrogen 14 mg/dL (7-18); Carbon Dioxide 24.8 meq/L (21.0-32.0); Chloride 105 meq/L (98-107); Glomerular Filtration Rate 74 mL/min (>89); Glucose,Random 204 mg/dL (74-106); Magnesium 1.8 mg/dL (1.5-2.5); Potassium 4.4 meq/L (3.5-5.1); Sodium 138 meq/L (136-145)
[2018-01-04 05:22] LABS: Alanine Aminotransferase 19 U/L (10-53)
[2018-01-04 05:24] LABS: Alkaline Phosphatase 94 U/L (45-117); Total Protein 7.4 g/dL (6.4-8.2)
[2018-01-04 05:31] LABS: Platelet Morphology Normal (Normal)
[2018-01-04 05:32] LABS: Ovalocytes 1+
[2018-01-04] MEDS: Multivit/Folic Acid/Minerals Chewable Tablets CHEW SCH (08:45)
[2018-01-04] MEDS: Senna/Docusate Sodium 8.6/50 MG Tablet PO SCH ×2 (08:46→20:26)
--- NOTE | 2018-01-04 08:58 | P.PN ---
Subjective Interval history: In bed says she has some pain at the surgical site. No fever or chills overnight. No n/v/d/c. Denies chest pain or sob. Physical Exam Vital signs: Vital Signs 01/03/18 12:00 01/03/18 15:39 01/03/18 19:49 Temperature 97.9 F 98.1 F 97.9 F Pulse Rate 68 58 L 63 Respiratory Rate 18 18 20 Blood Pressure 139/68 152/65 H 151/72 H Pulse Oximetry 94 L 96 95 01/03/18 20:00 01/04/18 00:00 01/04/18 04:00 Temperature 97.7 F 97.9 F Pulse Rate 61 53 L 61 Respiratory Rate 20 18 Blood Pressure 158/78 H 161/69 H Pulse Oximetry 94 L 94 L 01/04/18 08:00 Temperature 97.3 F L Pulse Rate 74 Respiratory Rate 20 Blood Pressure 134/65 Pulse Oximetry 92 L Intake & Output 01/03/18 01/04/18 01/04/18 18:59 06:59 18:59 Intake Total 1577.5 / 1577.5 2099 757.5 / 757.5 Output Total / Balance 1577.5 / 1577.5 2099 / 2099 732.5 / 732.5 Weight 144.2 kg Intake: IV 617.5 / 617.5 2099 / 2099 517.5 / 517.5 NS Inj 1,000 ML @ 125 mls/hr IV 1999 / 1999 .CONT .Q8H [facility]LIE Rx#:[id number] Zosyn 3.375 GM Premix 50 ML @ 100 / 100 100 / 100 100 mls/hr IV.SIG Q6H [facility]LIE Rx#: [id number] Vancomycin Inj 1,750 MG In NS 517.5 / 517.5 517.5 / 517.5 Inj 500 ML @ 250 mls/hr IV.SIG Q12H HCARLIE Rx#:[id number] Oral 960 / 960 240 / 240 Output: Wound Vac Amount 25 / 25 Right Lower Calf 25 / Other: Mode Setting Left Lower Calf Continuous Right Lower Calf Continuous # Voids 4 1 2 Narrative: GENERAL: Obese female, disheveled appearing, no acute distress SKIN: Sunburn. Wd vac right leg CARDIOVASCULAR: Regular rhythm. Bradycardia no murmurs RESPIRATORY: No accessory muscle use. Clear to auscultation. Breath sounds equal bilaterally. GASTROINTESTINAL: Abdomen soft, non-tender, nondistended. Extremities: No clubbing, cyanosis. Has bilateral lower extremity edema, right is worse than the left. MUSCULOSKELETAL: adequate muscle bulk and tone for age and habitus NEUROLOGICAL: Awake and alert. No obvious cranial nerve deficits. No facial droop nor slurred speech noted. PSYCHIATRIC: Appropriate mood and affect; insight and judgment normal. Results - Labs CBC & Chem 7: 01/04/18 04:00 01/04/18 04:00 Laboratory Results - last 24 hr 01/04/18 01/04/18 04:00 04:00 WBC 4.0 D RBC 3.07 L Hgb 9.4 L Hct 29.8 L MCV 97.2 MCH 30.7 MCHC 31.6 L RDW 18.7 H Plt Count 71 L MPV 8.8 Prelim Diff (Auto) Slide review pending Neut % (Auto) 73.8 H Lymph % (Auto) 17.2 [place] % (Auto) 8.0 Eos % (Auto) 0.4 Baso % (Auto) 0.6 Neut # (Auto) 2.9 Lymph # (Auto) 0.7 L [place] # (Auto) 0.3 Eos # (Auto) 0.0 Baso # (Auto) 0.0 WBC Differential . Diff Scan Auto diff confirmed Differential Comment . Platelet Estimate Low L Platelet Morphology Normal Ovalocytes 1+ H Sodium 138 Potassium 4.4 Chloride 105 Carbon Dioxide 24.8 Anion Gap 8 BUN 14 Creatinine 0.83 Estimated GFR 74 L Random Glucose 204 H Calcium 8.0 L Magnesium 1.8 Total Bilirubin 0.7 AST 36 ALT 19 Alkaline Phosphatase 94 Total Protein 7.4 D Albumin 2.5 L Microbiology 01/02/18 01:45 Wound - Leg Gram Stain - Final 01/02/18 01:45 Wound - Leg Wound Culture - Preliminary gram negative rods 01/02/18 22:00 Abscess - Leg Gram Stain - Final 01/02/18 22:00 Abscess - Leg Wound Culture - Preliminary gram negative rods 01/02/18 02:03 Blood - Peripheral Aerobic Blood Culture - Preliminary No growth in 1 day 01/02/18 02:03 Blood - Peripheral Anaerobic Blood Culture - Preliminary No growth in 1 day 01/02/18 02:03 Blood - Peripheral Aerobic Blood Culture - Preliminary No growth in 1 day 01/02/18 02:03 Blood - Peripheral Anaerobic Blood Culture - Preliminary No growth in 1 day 01/02/18 22:00 Abscess - Leg Fungal Smear - Final No fungal elements seen - Procedures Status post I&D of right lower extremity abscess Assessment and Plan - Plan 47-year-old white female admitted for acutely infected chronic wound with intractable leg pain Right lower extremity abscess with leg pain status post I&D with wound VAC. Wound care, pain management with Lortab and antibiotics with vancomycin and Zosyn follow-up cultures with gram-negative lizzie. Follow-up biopsy -Surgery to consider discontinuation of wound VAC in 1-2 days transition to wet- to-dry Lower extremity edema. Negative for DVT on Doppler. Echocardiogram unremarkable Most likely from dependent positions, keep elevated Alcohol abuse -We will schedule Librium every 8 hours, wean over time. [facility] protocol COPD Monitor respiratory status, stable at this time Pancytopenia likely related to alcohol. Monitor Elevated lipase. Denies abdominal pain. Monitor we will consider chemical DVT prophylaxis once patient is surgically clear to do so and when thrombocytopenia improves, avoid SCDs given lower extremity conditions DC when arrangements are done when surgical team clears patient for DC, when wound vac DC or arrangements done
--- NOTE | 2018-01-04 13:19 | P.PNGS ---
Subjective Patient reports: still having pain, tolerating a regular diet, afebrile Physical Exam Vital signs: Vital Signs 01/03/18 15:39 01/03/18 19:49 01/03/18 20:00 Temperature 98.1 F 97.9 F Pulse Rate 58 L 63 61 Respiratory Rate 18 20 Blood Pressure 152/65 H 151/72 H Pulse Oximetry 96 95 01/04/18 00:00 01/04/18 04:00 01/04/18 08:00 Temperature 97.7 F 97.9 F 97.3 F L Pulse Rate 53 L 61 74 Respiratory Rate 20 18 20 Blood Pressure 158/78 H 161/69 H 134/65 Pulse Oximetry 94 L 94 L 92 L 01/04/18 09:00 01/04/18 12:00 Temperature 97.4 F L Pulse Rate 74 64 Respiratory Rate 18 Blood Pressure 136/85 Pulse Oximetry 96 Intake & Output 01/03/18 01/04/18 01/04/18 18:59 06:59 18:59 Intake Total 1577.5 / 1577.5 2099 807.5 / 807.5 Output Total Balance 1577.5 / 1577.5 2099 782.5 / 782.5 Weight 144.2 kg Intake: IV 617.5 / 617.5 2099 / 2099 567.5 / 567.5 NS Inj 1,000 ML @ 125 mls/hr IV 1999 / 1999 .CONT .Q8H [facility] Rx#:[id number] Zosyn 3.375 GM Premix 50 ML @ 100 / 100 100 / 100 50 / 50 100 mls/hr IV.SIG Q6H [facility]LIE Rx#: [id number] Vancomycin Inj 1,750 MG In NS 517.5 / 517.5 517.5 / 517.5 Inj 500 ML @ 250 mls/hr IV.SIG Q12H [facility]IE Rx#:[id number] Oral 960 / 960 240 / 240 Output: Wound Vac Amount Right Lower Calf 25 Other: Mode Setting Left Lower Calf Continuous Right Lower Calf Continuous # Voids 4 1 2 - Constitutional no acute distress - Routine Extremities Exam Present: edema (good seal with vac dressing, cellulitis less) Assessment and Plan - Plan POD 2 I and d with vac plan reg diet elevation of leg while in bed, ambulate ok for dvt ppx pain control await bx result will remove vac tomorrow and transition to wet to dry
--- NOTE | 2018-01-04 18:57 | ECG ---
Date Performed: 01/03/2018 Time Performed: 19:08:46 PTAGE: 47 years EKG: Sinus rhythm LOW QRS VOLTAGE IN PRECORDIAL LEADS BORDERLINE ECG PREVIOUS TRACING : 12/04/2017 00.56 Since the previous tracing, no significant change noted DOCTOR: Tim Villavicencio Interpretating Date/Time 01/04/2018 18:52:23
[2018-01-05] MEDS: Piperacil/Tazo 3.375 GM Premix 50 ML IV.SIG SCH ×4 (02:29→20:26)
[2018-01-05] MEDS ORDERED: Pharmacy Ordered Lab Info OTHER ONE (03:45)
[2018-01-05] MEDS: Vancomycin Inj 1,750 MG in Sodium Chlor 0.9% Inj 500 ML IV.SIG SCH (04:49)
[2018-01-05] MEDS: Senna/Docusate Sodium 8.6/50 MG Tablet PO SCH ×2 (08:08→20:26)
[2018-01-05] MEDS: Multivit/Folic Acid/Minerals Chewable Tablets CHEW SCH (08:08)
[2018-01-05] MEDS ORDERED: HYDROmorphone PF Inj 2 MG/ML Vial IV.PUSH ONE (10:00)
--- NOTE | 2018-01-05 14:19 | P.PNGS ---
Subjective Patient reports: feels better, tolerating a regular diet Physical Exam Vital signs: Vital Signs 01/04/18 16:00 01/04/18 20:00 01/05/18 00:00 Temperature 98.1 F 97.4 F L 97.9 F Pulse Rate 60 68 68 Respiratory Rate 20 16 16 Blood Pressure 156/70 H 148/67 H 141/64 H Pulse Oximetry 96 95 96 01/05/18 04:00 01/05/18 04:40 01/05/18 08:00 Temperature 97.2 F L 97.5 F L Pulse Rate 59 L 55 L 69 Respiratory Rate 16 18 Blood Pressure 125/58 L 146/79 H Pulse Oximetry 94 L 95 01/05/18 08:40 01/05/18 12:00 Temperature 98.2 F Pulse Rate 64 Respiratory Rate 14 18 Blood Pressure 143/70 H Pulse Oximetry 95 Intake & Output 01/04/18 01/05/18 01/05/18 18:59 06:59 18:59 Intake Total 3215.0 / 3215.0 1340 / 1340 Output Total 25 / 25 0 / 0 Balance 3190.0 / 3190.0 1340 / 1340 Weight 145.8 kg 147 kg Intake: IV 2135.0 / 2135.0 1100 / 1100 NS Inj 1,000 ML @ 125 mls/hr IV 1000 / 1000 1000 / 1000 .CONT .Q8H CHARLIE Rx#:[id number] Zosyn 3.375 GM Premix 50 ML @ 100 / 100 100 / 100 100 mls/hr IV.SIG Q6H CHARLIE Rx#: [id number] Vancomycin Inj 1,750 MG In NS 1035.0 / 1035.0 Inj 500 ML @ 250 mls/hr IV.SIG Q12H CHARLIE Rx#:[id number] Oral 1080 / 1080 240 / 240 Output: Wound Vac Amount 25 / 25 0 / 0 Right Lower Calf 25 / 25 0 / 0 Other: # Voids 5 1 # Bowel Movements 4 1 - Routine Respiratory Exam Present: CTA bilaterally - Routine Cardiovascular Exam Present: RRR - Routine Extremities Exam Present: edema (better, vac good sxn, no cellulitis) Assessment and Plan - Plan POD 3 I and d with vac plan reg diet elevation of leg while in bed, ambulate ok for dvt ppx pain control await bx result- no cancer vac removed change to wet to dry will s/o, continue wound care, [facility]
--- NOTE | 2018-01-05 14:30 | P.PN ---
Subjective Interval history: The patient is at the margin of the bed. Wound VAC was removed. Still with some pain at the surgical site. No fever or chills. No nausea vomiting. Physical Exam Vital signs: Vital Signs 01/04/18 16:00 01/04/18 20:00 01/05/18 00:00 Temperature 98.1 F 97.4 F L 97.9 F Pulse Rate 60 68 68 Respiratory Rate 20 16 16 Blood Pressure 156/70 H 148/67 H 141/64 H Pulse Oximetry 96 95 96 01/05/18 04:00 01/05/18 04:40 01/05/18 08:00 Temperature 97.2 F L 97.5 F L Pulse Rate 59 L 55 L 69 Respiratory Rate 16 18 Blood Pressure 125/58 L 146/79 H Pulse Oximetry 94 L 95 01/05/18 08:40 01/05/18 12:00 Temperature 98.2 F Pulse Rate 64 Respiratory Rate 14 18 Blood Pressure 143/70 H Pulse Oximetry 95 Intake & Output 01/04/18 01/05/18 01/05/18 18:59 06:59 18:59 Intake Total 3215.0 / 3215.0 1340 / 1340 Output Total 25 / 25 0 / 0 Balance 3190.0 / 3190.0 1340 / 1340 Weight 145.8 kg 147 kg Intake: IV 2135.0 / 2135.0 1100 / 1100 NS Inj 1,000 ML @ 125 mls/hr IV 1000 / 1000 1000 / 1000 .CONT .Q8H CHARLIE Rx#:[id number] Zosyn 3.375 GM Premix 50 ML @ 100 / 100 100 / 100 100 mls/hr IV.SIG Q6H CHARLIE Rx#: [id number] Vancomycin Inj 1,750 MG In NS 1035.0 / 1035.0 Inj 500 ML @ 250 mls/hr IV.SIG Q12H CHARLIE Rx#:[id number] Oral 1080 / 1080 240 / 240 Output: Wound Vac Amount 25 / 25 0 / 0 Right Lower Calf 25 / 25 0 / 0 Other: # Voids 5 1 # Bowel Movements 4 1 Narrative: GENERAL: Obese female, in no acute distress SKIN: Sunburn. Dressing c/d/i over the lateral right lower leg wound CARDIOVASCULAR: Regular rhythm. Bradycardia no murmurs RESPIRATORY: No accessory muscle use. Clear to auscultation. Breath sounds equal bilaterally. GASTROINTESTINAL: Abdomen soft, non-tender, nondistended. Extremities: No clubbing, cyanosis. Has bilateral lower extremity edema, right is worse than the left. MUSCULOSKELETAL: adequate muscle bulk and tone for age and habitus NEUROLOGICAL: Awake and alert. No obvious cranial nerve deficits. No facial droop nor slurred speech noted. PSYCHIATRIC: Appropriate mood and affect; insight and judgment normal. Results - Labs CBC & Chem 7: 01/04/18 04:00 01/04/18 04:00 Laboratory Results - last 24 hr 01/05/18 03:49 Vancomycin Trough 18.3 H Microbiology 01/02/18 02:03 Blood - Peripheral Aerobic Blood Culture - Preliminary No growth in 3 days 01/02/18 02:03 Blood - Peripheral Anaerobic Blood Culture - Preliminary No growth in 3 days 01/02/18 02:03 Blood - Peripheral Aerobic Blood Culture - Preliminary No growth in 3 days 01/02/18 02:03 Blood - Peripheral Anaerobic Blood Culture - Preliminary No growth in 3 days 01/02/18 22:00 Abscess - Leg Acid Fast Bacilli Smear - Final No acid fast bacilli seen 01/02/18 22:00 Abscess - Leg Gram Stain - Final 01/02/18 22:00 Abscess - Leg Wound Culture - Final 01/02/18 01:45 Wound - Leg Gram Stain - Final 01/02/18 01:45 Wound - Leg Wound Culture - Final - Procedures Status post I&D of right lower extremity abscess Assessment and Plan - Plan 47-year-old white female admitted for acutely infected chronic wound with intractable leg pain Right lower extremity abscess with leg pain status post I&D with wound VAC. Wound care, pain management with Lortab and antibiotics with vancomycin and Zosyn follow-up cultures with gram-negative lizzie. Follow-up biopsy -wound VAC DCd and transitioned to wet-to-dry Lower extremity edema. Negative for DVT on Doppler. Echocardiogram unremarkable Most likely from dependent positions, keep elevated Alcohol abuse -We will schedule Librium every 8 hours, wean over time. [facility] protocol COPD Monitor respiratory status, stable at this time Pancytopenia likely related to alcohol. Monitor Elevated lipase. Denies abdominal pain. Monitor We will consider chemical DVT prophylaxis once patient is surgically clear to do so and when thrombocytopenia improves, avoid SCDs given lower extremity conditions DC when arrangements are done when surgical team clears patient for DC, wound vac DCd 01/05
[2018-01-05] MEDS: Vancomycin Inj 1,300 MG in Sodium Chlor 0.9% Inj 500 ML IV.SIG SCH (15:58)
[2018-01-06] MEDS: Vancomycin Inj 1,300 MG in Sodium Chlor 0.9% Inj 500 ML IV.SIG SCH ×2 (05:26→15:01)
[2018-01-06] MEDS: Piperacil/Tazo 3.375 GM Premix 50 ML IV.SIG SCH ×3 (05:26→15:01)
[2018-01-06] MEDS: Senna/Docusate Sodium 8.6/50 MG Tablet PO SCH (08:29)
[2018-01-06] MEDS: Multivit/Folic Acid/Minerals Chewable Tablets CHEW SCH (08:30)
--- NOTE | 2018-01-06 09:10 | P.DS ---
Date of admission: 01/03/18 17:42 Primary care physician: No Primary Care Physician Brief History from admission: 47-year-old white female being admitted for acutely infected wound and intractable right leg pain. Patient was in her usual state of health until about 1 week ago when the chronic intermittent pain in her right foot and wound began to worsen and became unbearable over the week. Hurt more to bear weight on it, only thing she has tried to do to take away the pain is drink alcohol which she drinks daily anyway.. Patient says she is noticed no significant change in the chronic drainage of the wound which would either drain blood or yellowish fluid. Says it has had followed her for a couple of weeks now. Patient says that most recently she has just been applying gauze to cover it but had been applying med-a-honey up until a few weeks ago. Says she saw a dedicated wound care practice in [place] right across from [facility]. Patient denies having any surgery on this wound. Says this wound has been there for 4 months, first occurred when she had cut herself with some thorny lima in the oliva. Patient says she has been home for 4 years. Patient reports having some nausea but no fevers or chills. Patient says that she does have increased lower extremity edema, on exam the right is worse than the left. In the emergency department her blood work is unremarkable. DS: Diagnosis - Discharge Diagnosis (1) Cellulitis Status: Acute (2) Infected open wound Status: Acute DS: Medications - Discharge Medications Prescriptions: sulfamethoxazole-trimethoprim [Bactrim DS] 1 tab PO Q12H #14 tab thiamine HCl (vitamin B1) 100 mg PO DAILY #60 tab DS: Summary Hospital Course: 47-year-old white female admitted for acutely infected chronic wound with intractable leg pain. Right lower extremity abscess with leg pain status post I&D with wound VAC. Wound care, pain management with Lortab and antibiotics with vancomycin and Zosyn follow-up cultures with gram-negative lizzie. Follow-up biopsy -wound VAC DCd and transitioned to wet-to-dry Lower extremity edema. Negative for DVT on Doppler. Echocardiogram unremarkable Most likely from dependent positions, keep elevated Alcohol abuse -We will schedule Librium every 8 hours, wean over time. [facility] protocol ? COPD Monitor respiratory status, stable at this time Pancytopenia likely related to alcohol. Monitor Elevated lipase. Denies abdominal pain. Monitor We will consider chemical DVT prophylaxis once patient is surgically clear to do so and when thrombocytopenia improves, avoid SCDs given lower extremity conditions Wound vac DCd 01/05 . Cleared by surgery for DC. DC in stable condition to follow up as OP with PCP and consultants. - Time Spent with Patient Total time spent providing and/or coordinating discharge services: Greater than 30 minutes - Quality: VTE Deep Vein Thrombosis/Pulmonary Embolism Present on Admission: No Exam Vital signs: Vital Signs 01/05/18 12:00 01/05/18 16:00 01/05/18 20:00 Temperature 98.2 F 98.2 F 98.1 F Pulse Rate 64 67 68 Respiratory Rate 12 20 20 Blood Pressure 143/70 H 154/72 H 143/66 H Pulse Oximetry 95 98 95 01/06/18 00:00 01/06/18 04:00 01/06/18 08:00 Temperature 98 F 97.6 F 97.8 F Pulse Rate 71 66 66 Respiratory Rate 20 5 L 17 Blood Pressure 108/60 135/66 144/82 H Pulse Oximetry 94 L 94 L 97 Intake & Output 01/05/18 01/06/18 01/06/18 18:59 06:59 18:59 Intake Total 2016 / 2016 580 / 580 1030.5 / 1030.5 Output Total 1200 / 1200 Balance 817 / 817 580 / 580 1030.5 / 1030.5 Weight 141.3 kg Intake: IV 617 / 617 100 / 100 1030.5 / 1030.5 Zosyn 3.375 GM Premix 50 ML @ 100 / 100 100 / 100 100 mls/hr IV.SIG Q6H CHARLIE Rx#: [id number] Vancomycin Inj 1,300 MG In NS 517 / 517 513 / 513 Inj 500 ML @ 250 mls/hr IV.SIG Q12H CHARLIE Rx#:[id number] Oral 1400 / 1400 480 / 480 Output: Urine 1200 / 1200 Other: # Voids 15 # Bowel Movements 1 4 Narrative: GENERAL: Obese female, in no acute distress SKIN: Sunburn. Dressing c/d/i over the lateral right lower leg wound CARDIOVASCULAR: Regular rhythm. Bradycardia no murmurs RESPIRATORY: No accessory muscle use. Clear to auscultation. Breath sounds equal bilaterally. GASTROINTESTINAL: Abdomen soft, non-tender, nondistended. Extremities: No clubbing, cyanosis. Has bilateral lower extremity edema, right is worse than the left. MUSCULOSKELETAL: adequate muscle bulk and tone for age and habitus NEUROLOGICAL: Awake and alert. No obvious cranial nerve deficits. No facial droop nor slurred speech noted. PSYCHIATRIC: Appropriate mood and affect; insight and judgment normal. Results Procedures completed during hospitalization: Status post I&D of right lower extremity abscess Completed studies during hospitalization: Pending at discharge 01/02/18 07:26 Surgical [PTH] Routine Labs on day of discharge: Preliminary micro results at discharge 01/02/18 02:03 Aerobic Blood Culture - Preliminary Blood - Peripheral No growth in 3 days Anaerobic Blood Culture - Preliminary No growth in 3 days 01/02/18 02:03 Aerobic Blood Culture - Preliminary Blood - Peripheral No growth in 3 days Anaerobic Blood Culture - Preliminary No growth in 3 days - Impressions ITS Impressions Lower Extremity Ultrasound 01/02/18 00:00 CONCLUSION: 1. Fluid as above. Venous Doppler Study 01/02/18 00:00 CONCLUSION: 1. Negative for deep venous thrombosis 2. 5.6 cm popliteal cyst Chest X-Ray 01/02/18 01:11 CONCLUSION: No acute findings. Tibia/Fibula X-Ray 01/02/18 01:11 CONCLUSION: No acute bony abnormality. Soft tissue ulceration remains present with subcutaneous edema. Discharge Plan - Discharge Disposition Patient Disposition: Discharge Home - Discharge Condition Condition: Stable - Discharge Order Discharge Orders: Discharge Order (Routine); Ordered 01/06/18 Ordered By: Landy Nunes - Discharge Details Anticipated Discharge Date: 01/06/18 - Physicians Team Primary Care Provider: Primary Care Guillermina,Angela Attending Provider: Landy Nunes Other Providers: Wilfrido Miller MD ; Natalie Adan MD
[2018-01-06 12:16] VITALS: RESP 18
[2018-01-06 17:43] VITALS: BP 139/61; PULSE 59; TEMP 97.6; O2SAT 98
[2018-01-07] MEDS ORDERED: Pharmacy Ordered Lab Info OTHER ONE (03:45)
== END 2018-01-06 17:45 | disposition home or self-care (01) ==
LOC: NEDA 21:55 → NEPE 21:55 → NEDH 01-02 14:36 → NEPGCP 01-02 17:08 → N07 01-02 20:47
PROVIDERS: ADMIT Hospitalist; ATTEND Hospitalist